=== PATIENT | female | born 1945 | race Caucasian/White ===

== ENCOUNTER 2017-10-25 09:39 | Day surgery (SDC) | payer OTHER, MEDICAID ==
[~2017-10-25 09:39] MED LIST: BALANCED SALT SOLN 15 ML OPH IRRIG
[2017-10-25] MEDS ORDERED: SOD CHLORIDE 0.9% 1,000 ML IV (11:00)
[2017-10-25] MEDS ORDERED: MIDAZOLAM 1 MG/ML 2 ML INJ (11:39)
[2017-10-25] MEDS ORDERED: FENTAnyl 50 MCG/ML VIAL (11:39)
[2017-10-25] MEDS: EPINEPHrine 1 MG INJ (11:52)
[2017-10-25] MEDS: LIDOCAINE 1%/EPI 30 ML INJ (11:52)
[2017-10-25] MEDS ORDERED: DIPHENHYDRAMINE 50 MG INJ IV (12:00)
[2017-10-25] MEDS ORDERED: MEPERIDINE 25 MG INJ IV (12:00)
[2017-10-25] MEDS ORDERED: FENTAnyl 50 MCG/ML VIAL IV (12:00)
[2017-10-25] MEDS ORDERED: HYDROmorphONE 1 MG/5 ML IV SYRINGE IV (12:00)
[2017-10-25] MEDS ORDERED: hydrALAzine 20 MG INJ IV (12:00)
[2017-10-25] MEDS ORDERED: LABETALOL HCL 20MG INJ IV (12:00)
[2017-10-25] MEDS ORDERED: ONDANSETRON 4 MG INJ IV ×2 (12:00→13:30)
[2017-10-25] MEDS: BALANCED SALT SOLN 15 ML OPH IRRIG RIGHT EYE (12:16)
[2017-10-25] MEDS ORDERED: LIDOCAINE 2% (SDV) 5 ML INJ (12:50)
[2017-10-25] MEDS ORDERED: PROPOFOL 40 ML (12:50)
[2017-10-25] MEDS ORDERED: CEFAZOLIN 1 GM INJ (12:50)
[2017-10-25] MEDS ORDERED: ONDANSETRON 4 MG INJ (12:51)
[2017-10-25] MEDS ORDERED: ACETAMINOPHEN 325 MG TAB PO (13:30)
[2017-10-25] MEDS ORDERED: morphine 2 MG INJ IV (13:30)
[2017-10-25] MEDS ORDERED: HYDROCODONE/APAP (5/325) TAB PO (13:30)
== END 2017-10-25 14:42 | disposition home or self-care (01) ==
LOC: SDS 09:39
DX: C44.112 Basal cell carcinoma of skin of right eyelid, including canthus (principal); L57.8 Other skin changes due to chronic exposure to nonionizing radiation
CPT/HCPCS: 14060; 88305; 88331